=== PATIENT | male | born 1990 | race Caucasian/White ===

== ENCOUNTER 2017-02-09 14:00 | Emergency (ER) | payer MEDICAID ==
[2017-02-09 15:16] VITALS: BP 129/78
== END 2017-02-09 15:16 | disposition home or self-care (01) ==
LOC: ED 14:00
DX: J01.10 Acute frontal sinusitis, unspecified (principal); J01.00 Acute maxillary sinusitis, unspecified; H10.33 Unspecified acute conjunctivitis, bilateral; R03.0 Elevated blood-pressure reading, without diagnosis of hypertension
CPT/HCPCS: J1885; J7613; J7644; Q0162